=== PATIENT | male | born 1960 | race Caucasian/White ===

== ENCOUNTER 2016-10-21 17:39 | Emergency (ER) | payer SELFPAY ==
[~2016-10-21] VITALS: Ht 154.9 cm; Wt 90.7 kg
--- NOTE | 2016-10-21 17:46 | NUR ---
PT BIBRA FROM THE STREETS TO ER BED 15. ETOH. PT EASILY AROUSABLE. DENIES PAIN. ADMITS TO BEEN DRINKING. NO OBVIOUS TRAUMA NOTED. PLACED ON MONITOR SHOWING STABLE VITALS. AWAITING MD CALVIN. WILL MONITOR CLOSELY.
--- NOTE | 2016-10-21 19:53 | NUR ---
PT SLEEPING IN BED. ON MONITOR W/ STABLE VITALS. WILL MONITOR CLOSELY.
--- NOTE | 2016-10-21 23:11 | NUR ---
REPORT TO CHARGE NURSE LEYLA FOR GERRY.
--- NOTE | 2016-10-22 01:07 | NUR ---
Patient discharged to home in stable condition. Written and verbal after care instructions given. Patient verbalizes understanding of instruction. Pt ambulatory with a steady gait. VSS, NAD noted on DC. Denies complaint on DC.
[2016-10-22 01:08] VITALS: BP 120/75
== END 2016-10-22 01:09 | disposition home or self-care (01) ==
LOC: ER 17:41
DX: F10.129 Alcohol abuse with intoxication, unspecified (principal)
CPT/HCPCS: 99283; A4606; Z7610